=== PATIENT | female | born 1950 | race Caucasian/White ===

== ENCOUNTER 2016-09-01 06:47 | Day surgery (SDC) | payer OTHER ==
[~2016-09-01] VITALS: Ht 154.9 cm; Wt 73.0 kg
[~2016-09-01 06:47] MED LIST: ALBUTEROL SULF8.5 GM IH; ALPRAZOLAM1 MG PO; AZELASTINE137 MCG/0. BOTH NARES; BUDEPRION XL150 MG PO; CALCIUM + D 601 EACH PO; CELEBREX200 MG PO; CELEXA40 MG PO; CRESTOR20 MG PO; FLEXERIL10 MG PO; HYDROCHLOROTHIA25 MG PO; HYDROCODON-ACE1 EAC7 PO; K-DUR10 MEQ; K-DUR10 MEQ PO; LANSOPRAZOLE30 MG PO; LEVO-T75 MCG PO; LEVOTHROID125 MCG PO; LOSARTAN POTAS100 MG PO; METOPROLOL SUCC50 MG PO; MICRO-K10 ME2 PO; MOTRIN600 MG PO; NORVASC10 MG PO; OMEPRAZOLE40 M1 PO; PRAVASTATIN SOD40 MG PO; PRILOSEC40 MG PO; PROMETHAZINE HC25 M1 PO; TAMIFLU75 MG PO; TESSALON PERLE100 MG PO; TYLENOL REGULA325 MG PO; VITAMIN D250000 UNIT PO; VITAMIN D31000 UNIT PO; WELLBUTRIN XL150 MG PO
[2016-09-01 07:22] VITALS: BP 135/67
[2016-09-01 10:15] VITALS: BP 144/85
[2016-09-01 11:07] VITALS: BP 133/83
== END 2016-09-01 11:23 | disposition home or self-care (01) ==
LOC: SDC 06:47
PROC: 0UDB8ZX Extraction of Endometrium, Via Natural or Artificial Opening Endoscopic, Diagnostic (ICD-10-PCS; principal; 2016-09-01)
DX: N84.0 Polyp of corpus uteri (principal); R10.30 Lower abdominal pain, unspecified; R93.8 Abnormal findings on diagnostic imaging of other specified body structures; Z85.850 Personal history of malignant neoplasm of thyroid; Z98.84 Bariatric surgery status; I10 Essential (primary) hypertension; K22.70 Barrett's esophagus without dysplasia; F41.9 Anxiety disorder, unspecified; E78.5 Hyperlipidemia, unspecified; K31.84 Gastroparesis; M85.80 Other specified disorders of bone density and structure, unspecified site; G62.9 Polyneuropathy, unspecified; E55.9 Vitamin D deficiency, unspecified; Z88.8 Allergy status to other drugs, medicaments and biological substances; Z88.1 Allergy status to other antibiotic agents; Z82.49 Family history of ischemic heart disease and other diseases of the circulatory system
CPT/HCPCS: 88305; J0690; J1100; J1170; J2250; J2405; J2765; J3010

== ENCOUNTER 2017-06-08 21:13 | Emergency (ER) | payer OTHER ==
[~2017-06-08] VITALS: Ht 152.4 cm; Wt 73.7 kg
[2017-06-08 21:50] LABS: HEMATOCRIT 29.9 % (36.0-46.0); HEMOGLOBIN 9.3 G/DL (11.9-15.5); MCH 21.6 PG (29.0-34.0); MCHC 31.1 G/DL (30.0-36.0); MCV 69.5 FL (83-99); PLATELET COUNT 375 K/uL (156-360); RBC DIS.WIDTH-CV 15.9 % (11.8-14.6); RBC DIS.WIDTH-SD 39.6 % (39-53); WHITE BLOOD COUNT 10.1 K/uL (4.1-10.2)
[2017-06-08 21:52] LABS: CHLORIDE 107 mEq/L (99-109); POTASSIUM 3.2 mEq/L (3.7-5.4); SODIUM 142 mEq/L (136-147)
[2017-06-08 21:54] LABS: GLUCOSE 115 mg/dL (70-99)
[2017-06-08 21:58] LABS: CREATININE 0.8 mg/dL (0.6-1.3); GFR ESTIMATE (CALCULATED) > 59 mL/min/
[2017-06-08 21:59] LABS: UREA NITROGEN (BUN) 9 mg/dL (9-23)
[2017-06-08 22:06] LABS: TROP-I INTERPRETATION NEGATIVE; TROPONIN-I < 0.01 ng/mL (0.0-0.30)
[2017-06-09 03:28] LABS: APPEARANCE SL.HAZY ((CLEAR)); BILIRUBIN NEGATIVE; BLOOD NEGATIVE; COLOR YELLOW ((YELLOW)); GLUCOSE (STRIP) NEGATIVE; KETONES 5; LEUKOCYTES NEGATIVE; NITRITE NEGATIVE; PROTEIN (STRIP) 30; SPECIFIC GRAVITY 1.027 (1.000-1.030); UROBILINOGEN 0.2 MG/DL (0.2-1.0)
[2017-06-09 03:34] LABS: ALBUMIN 4.1 g/dL (3.2-4.8)
[2017-06-09 03:37] LABS: TOTAL PROTEIN 7.4 g/dL (6.4-8.3)
[2017-06-09 03:39] LABS: TOTAL BILIRUBIN 0.3 mg/dL (0.0-1.0)
[2017-06-09 03:40] LABS: ALKALINE PHOSPHATASE 110 IU/L (3-129)
[2017-06-09 03:42] LABS: AST (GOT) 14 IU/L (2-34); DIRECT BILIRUBIN 0.1 mg/dL (0.0-0.3)
[2017-06-09 03:43] LABS: ALT (GPT) 10 IU/L (3-49); LIPASE 11 U/L (1.0-51.0)
[2017-06-09 03:52] LABS: BACTERIA 1+ /HPF; EPITHELIAL CELLS 1+ /HPF; HYALINE CASTS 0-5 /LPF; MUCUS 3+ /LPF; RED BLOOD CELLS 0-5 /HPF (0-5); UCUL ADDED? NO; WHITE BLOOD CELLS 0-5 /HPF (0-5)
[2017-06-09] MEDS ORDERED: CARAFATE1 GM PO (04:45)
[2017-06-09 04:54] VITALS: BP 149/88
== END 2017-06-09 04:55 | disposition home or self-care (01) ==
LOC: EME 21:13
PROVIDERS: Emergency Medicine
DX: R07.9 Chest pain, unspecified (principal); R10.13 Epigastric pain; Z98.84 Bariatric surgery status; Z85.850 Personal history of malignant neoplasm of thyroid; Z88.1 Allergy status to other antibiotic agents; Z88.6 Allergy status to analgesic agent
CPT/HCPCS: 71046; 74177; 80048; 80076; 81003; 83605; 83690; 84484; 85027; 93005; 99281; 99285